=== PATIENT | male | born 1970 | race African-American/Black ===

== ENCOUNTER 2017-04-07 09:34 | Emergency (ER) | payer SELFPAY ==
[~2017-04-07] VITALS: Ht 172.7 cm; Wt 102.1 kg
[2017-04-07 09:55] VITALS: BP 126/87
[2017-04-07] MEDS ORDERED: HYDROcodone-ACET 10/325MG TAB PO ONE (10:30)
[2017-04-07] MEDS ORDERED: methylPREDNISolone SOD SUCC 125 MG/2 ML VL IM ONE (10:30)
[2017-04-07] MEDS ORDERED: cefTRIAXone SOD 1,000 MG VL IM ONE (10:30)
== END 2017-04-07 11:03 | disposition home or self-care (01) ==
LOC: ER 09:34
DX: L03.211 Cellulitis of face (principal); K02.9 Dental caries, unspecified
CPT/HCPCS: 96372; 99284; J0696; J2930